=== PATIENT | female | born 1990 | race African-American/Black ===

== ENCOUNTER 2017-05-12 15:24 | Emergency (ER) | payer OTHER ==
[~2017-05-12] VITALS: Ht 170.2 cm; Wt 67.2 kg
[~2017-05-12 15:24] MED LIST: ACET-2744 PO; LEVE500T9 PO
[2017-05-12 17:08] VITALS: BP 110/62
== END 2017-05-12 17:11 | disposition home or self-care (01) ==
LOC: EMS 15:26
DX: G40.909 Epilepsy, unspecified, not intractable, without status epilepticus (principal); Z79.899 Other long term (current) drug therapy
CPT/HCPCS: 99283